=== PATIENT | female | born 1990 | race Caucasian/White ===

== ENCOUNTER 2018-05-05 11:24 | Emergency (ER) | payer MEDICARE ==
[~2018-05-05] VITALS: Ht 172.7 cm; Wt 90.7 kg
--- OUTSIDE RECORDS SUMMARY | 2018-05-05 11:32 | XMS REPORT | Encounter Summary ---
Author Organization Unknown Address [address] [place] [id number] Phone [phone] Reason for Visit Medical Complaint Instructions 1. Cellulitis of lower limb mupirocin 2 % topical ointment sulfamethoxazole 800 mg-trimethoprim 160 mg tablet cellulitis: care instructions insect stings and bites: care instructions Discussion Note Pt is in no apparent acute distress; Verbalizes understanding of and agreement with all instructions with no questions at this time. Plan of Care Patient Instructions Take all medications as directed. Follow up with your PCP as needed, or if you develop any of the symptoms of worsening infection as discussed, seek higher level of care i. e. urgent care/Emergency Department. Seek additional medical care with new or worsening symptoms, or if symptoms do not resolve in 3-4 days. Thank you for allowing me to participate in your healthcare! Reminders Provider Appointments None recorded. Lab None recorded. Referral None recorded. Procedures None recorded. Surgeries None recorded. Imaging None recorded. Medications Name Start Date mupirocin 2 % topical ointment APPLY A SMALL AMOUNT TO THE AFFECTED AREA BY TOPICAL ROUTE 3 TIMES PER DAY sulfamethoxazole 800 mg-trimethoprim 160 mg tablet Take 1 tablet every 12 hours by oral route for 7 days. Medications Administered None recorded. Vitals Height Weight BMI Blood Pressure 5 ft 7 in 185 lbs 29 kg/m2 122/80 mm[Hg] Lab Results None recorded. Allergies Code Code System Name Reaction Severity Status Onset NKDA Problems No Known Problems Procedures Date Name Performed by Information not available Vaccine List Vaccine Type influenza, injectable, quadrivalent 01/25/2018 Tdap 04/27/2014 Social History Smoking Status Never Smoker Past Encounters 07/29/2017 Cellulitis of Lower Limb JANNETTE Hayes-C: [address] [place] [address], Ph. History of Present Illness Opvp-Xdlygub-Mbgrc-Skin Lesion-Bite 1 Reported By: Patient HPI: Location: legs. Quality: not itchy, painful, red, swollen. Severity: moderate. Duration: has noted for <1 week. Onset/Timing: abrupt onset. Context: no new detergents or skin products, no one else with similar rash, scratching, bite/sting exposure. Aggravating factors: bathing. Alleviating factors: antibiotics. Associated Symptoms: no fever/chills, no muscle aches, no headache, no cold symptoms, no nausea, no vomiting, no diarrhea, no urinary symptoms Review of Systems:ROS as noted in the HPI Review of Systems Basic Reported By: Patient Physical Exam Adult Basic, Adult Female Complete Reported By: Patient Constitutional: General Appearance: healthy-appearing, well-nourished, well-developed Psychiatric: Mental Status: active and alert. Orientation: to time, to place, to person Lungs: Respiratory effort: no dyspnea, no tachypnea, no use of accessory muscles, no intercostal retractions. Auscultation: breath sounds normal Cardiovascular: Heart Auscultation: RRR, no murmurs Neurologic: Gait and Station: normal gait, normal station Skin: Inspection and palpation: lesion, indurated. Nails: normal
--- OUTSIDE RECORDS SUMMARY | 2018-05-05 11:32 | XMS REPORT | Continuity of Care Document ---
Author Author [facility] Interface Address Unknown Phone Unavailable Problems Problem Status Onset Date Classification Date Reported Comments Source Cellulitis of lower limb 07/29/2017 Diagnosis 07/29/2017 [facility] Medications Medication Details Route Status Patient Instructions Ordering Provider Order Date Source Mupirocin 0.02 MG/MG Topical Ointment mupirocin 2 % topical ointment APPLY A SMALL AMOUNT TO THE AFFECTED AREA BY TOPICAL ROUTE 3 TIMES PER DAY Active [facility] Sulfamethoxazole 800 MG / Trimethoprim 160 MG Oral Tablet sulfamethoxazole 800 mg-trimethoprim 160 mg tablet Take 1 tablet every 12 hours by oral route for 7 days. Active [facility] Allergies, Adverse Reactions, Alerts Substance Category Reaction Severity Reaction type Status Date Reported Comments Source Immunizations Immunization Date Given Site Status Last Updated Comments Source influenza, injectable, quadrivalent 01/25/2018 completed [facility] Tdap 04/27/2014 completed [facility] Results Order Name Results Value Reference Range Date Interpretation Comments Source Vital Signs Vital Sign Value Date Comments Source Diastolic (mm Hg) 80 07/29/2017 [facility] Height 67 07/29/2017 [facility] Systolic (mm Hg) 122 07/29/2017 [facility] Weight 185 07/29/2017 [facility] Encounters Location Location Details Encounter Type Encounter Number Reason For Visit Attending Provider ADM Date DC Date Status Source [place] - [facility] - [id number] Reed, [employer]ATOR-C: [address] [place] [address], Ph. [id number] Lnae Reed 07/29/2017 [facility] Procedures Procedure Code Date Perfomer Comments Source [facility]
[2018-05-05 11:58] LABS: BASOPHILS % 0.6 % (0.0-1.0); EOSINOPHILS # (AUTO) 0.1 (0.0-0.4); HEMATOCRIT 44.2 % (34.2-44.1); HEMOGLOBIN 14.7 g/dL (12.0-16.0); LYMPHOCYTES # (AUTO) 1.8 (1.0-3.2); LYMPHOCYTES % 26.7 % (18.0-39.1); MEAN CORPUSCULAR HEMOGLOBIN 30.3 pg (28-32); MEAN CORPUSCULAR HGB CONC 33.3 g/dL (31-35); MEAN CORPUSCULAR VOLUME 91.1 fL (81-99); MONOCYTES # (AUTO) 0.6 (0.2-0.8); MONOCYTES % 8.4 % (4.4-11.3); NEUTROPHILS # (AUTO) 4.3 (2.1-6.9); NEUTROPHILS % 63.2 % (38.7-80.0); PLATELET COUNT 268 x10e3/uL (140-360); RED BLOOD COUNT 4.85 x10e6/uL (3.6-5.1); RED CELL DISTRIBUTION WIDTH 11.6 % (11.7-14.4)
[2018-05-05 12:21] LABS: ANION GAP 14.6 mmol/L (8-16); BLOOD UREA NITROGEN 9 mg/dL (7-26); BUN/CREATININE RATIO 12 (6-25); CALCIUM 9.2 mg/dL (8.4-10.2); CARBON DIOXIDE 25 mmol/L (22-29); CHLORIDE 103 mmol/L (98-107); CREATININE, SERUM 0.77 mg/dL (0.57-1.11); EST GLOMERULAR FILTRATION RATE > 60 ML/MIN (60-); GLUCOSE 99 mg/dL (74-118); POTASSIUM 3.6 mmol/L (3.5-5.1); SODIUM 139 mmol/L (136-145)
[2018-05-05 12:29] LABS: HCG,QUANTITATIVE < 1.20 mIU/mL (0-10)
--- NOTE | 2018-05-05 12:40 | NUR ---
PT TO US
--- NOTE | 2018-05-05 14:30 | Diagnostic Imaging Report ---
EXAM: First Trimester Obstetric Pelvic Ultrasound INDICATION: ^rule out ectopic] COMPARISON: None TECHNIQUE: Grayscale transverse and sagittal transabdominal and transvaginal images were obtained of the pelvis. Transvaginal imaging was medically necessary to better evaluate the endometrium, adnexa, and fetus. CLINICAL HISTORY: 27 year old A0 Last menstrual period: 03/03/2018 FINDINGS: Uterus: Orientation: Normal Size: 7.7 x 4.6 x 4.5 cm, normal nongravid uterus Mass: None Cervix: Complex free fluid in the endocervical canal. Endometrial stripe: 0.5 cm. Normal echotexture. Gestational Sac: None visualized. Yolk sac: Normal Embryo/Fetus: None visualized. Right ovary Size: 3.5 x 2.1 x 2.3 cm Mass/Cyst: None Left ovary Not visualized. Cul-de-sac: No free fluid IMPRESSION: 1. Normal nongravid uterus with complex free fluid in the endocervical canal. 2. of unknown location: Followup pelvic ultrasound in 1-2 weeks. CLASSIFICATION Viable: can potentially result in a liveborn baby Visualized embryo with FHT Nonviable: Findings diagnostic of failure * Ectopic * CRL >= 7 mm and no FHT * MSD >= 25 mm and no embryo * No FHT >= 2 weeks after US showed GS w/o YS * No FHT >= 11 days after US showed GS w/ YS Intrauterine of uncertain viability: Intrauterine GS with no FHT and no definite findings of failure of unknown location: Positive urine or serum test and no IUP or ectopic on US Diagnostic Criteria for Nonviable Early in the First Trimester N Engl J Med 2013;369:1443-51. DOI: [id number] Signed by: Dr. César Corbin M.D. on 05/05/2018 2:26 PM
[2018-05-05 14:36] LABS: BILIRUBIN,URINE NEGATIVE (NEGATIVE); CLARITY,URINE SL CLOUDY (CLEAR); COLOR,URINE RED (YELLOW); KETONES,URINE NEGATIVE (NEGATIVE); LEUKOCYTE ESTERASE ,URINE TRACE (NEGATIVE); NITRITE,URINE NEGATIVE (NEGATIVE); PROTEIN,URINE DIPSTICK TRACE (NEGATIVE); URINE UROBILINOGEN 0.2 mg/dL (0.2 - 1)
[2018-05-05 14:37] LABS: PREGNANCY TEST, URINE NEGATIVE (NEGATIVE)
[2018-05-05 14:50] LABS: RBC,URINE >50 /HPF (0-5)
== END 2018-05-05 15:30 | disposition home or self-care (01) ==
LOC: ER 11:29
DX: N93.9 Abnormal uterine and vaginal bleeding, unspecified (principal); R10.2 Pelvic and perineal pain
CPT/HCPCS: 36415; 76817; 80048; 81001; 81025; 84702; 85025; 86850; 86900; 99284